=== PATIENT | male | born 1955 | race Caucasian/White ===

== ENCOUNTER → 2019-03-06 | Outpatient (CLI) | payer OTHER ==
--- NOTE | 2019-03-08 15:07 | 24HR ---
[address] [place] [address] 24 HR ELECTROCARDIOGRAM REPORT Name: OSKARBRIE Room #: REG CL [facility]#: [id number] Admission: 03/06/19 Attend Phys: Devyn Goyal MD Discharge: Date of : 53 Date of Service: 03/09/19 1527 Report #: [id number] THIS REPORT FOR: //name// [facility] Test Date: 2019-03-09 Test Time: 15:27:00 Pat Name: BRIE SCHMITT Department: Room: Gender: [employer]: : 1955 Requested By: Devyn Goyal Order Number: [id number] Reading MD: Akhil Hays Interpretive Statements 1. Underlying rhythm: Sinus mechanism 2. No significant ventricular or supraventricular tachyarrhythmias 3. No significant conduction blocks, rhythm changes. 4. Bradycardia was asymptomatic and a reported 1.4 second pause was identified although was not visualized on the sample tracings 5. No diary entries Electronically Signed On 03-08-2019 15:06:45 CDT by Akhil Hays [email or web address] <ELECTRONICALLY SIGNED> By: Akhil Hays MD 03/08/19 1506 1527 1527 Akhil Hays MD /EPI
== END ==
LOC: CV 14:27
DX: R00.1 Bradycardia, unspecified (principal)

== ENCOUNTER → 2019-04-16 | Outpatient (CLI) | payer OTHER | LOC: CAT 10:33 | DX: Z13.6 Encounter for screening for cardiovascular disorders (principal); E78.00 Pure hypercholesterolemia, unspecified; I25.10 Atherosclerotic heart disease of native coronary artery without angina pectoris ==

== ENCOUNTER → 2021-09-13 | Outpatient (CLI) | payer OTHER | LOC: SJCVCIMAG 11:06 | PROVIDERS: ATTEND Internal Medicine Cardiovascular Disease | DX: I08.1 Rheumatic disorders of both mitral and tricuspid valves (principal); I25.10 Atherosclerotic heart disease of native coronary artery without angina pectoris; I87.2 Venous insufficiency (chronic) (peripheral); I12.9 Hypertensive chronic kidney disease with stage 1 through stage 4 chronic kidney disease, or unspecified chronic kidney disease; E11.22 Type 2 diabetes mellitus with diabetic chronic kidney disease; N18.30 Chronic kidney disease, stage 3 unspecified; I42.9 Cardiomyopathy, unspecified; R93.1 Abnormal findings on diagnostic imaging of heart and coronary circulation; R01.1 Cardiac murmur, unspecified; Z86.16 Personal history of COVID-19; Z72.89 Other problems related to lifestyle; Z82.49 Family history of ischemic heart disease and other diseases of the circulatory system; Z79.899 Other long term (current) drug therapy ==